=== PATIENT | female | born 1995 | race Asian ===

== ENCOUNTER 2024-12-02 16:30 | Emergency (ER) | payer BC ==
[~2024-12-02] VITALS: Ht 149.9 cm; Wt 52.6 kg
[2024-12-02] MEDS ORDERED: EPIN0.3P3 IM (17:36)
[2024-12-02] MEDS ORDERED: PRED50TA PO (17:36)
[2024-12-02] MEDS ORDERED: predniSONE 50 MG TABLET ONE (17:38)
[2024-12-02] MEDS: predniSONE 50 MG TABLET PO ONE (17:39)
[2024-12-02 17:45] VITALS: O2SAT 98
== END 2024-12-02 17:46 | disposition home or self-care (01) ==
LOC: ER 16:30
DX: R42 Dizziness and giddiness (principal); R06.02 Shortness of breath; T78.04XA Anaphylactic reaction due to fruits and vegetables, initial encounter; Z79.52 Long term (current) use of systemic steroids; Y84.8 Other medical procedures as the cause of abnormal reaction of the patient, or of later complication, without mention of misadventure at the time of the procedure; Y82.8 Other medical devices associated with adverse incidents
CPT/HCPCS: 99283; J7512; A4606; A4663